=== PATIENT | female | born 1995 | race Two or more races ===

== ENCOUNTER 2018-08-16 15:13 | Outpatient (CLI) | payer OTHER | END 2018-08-16 15:14 | disposition critical access hospital (66) | LOC: EMS 15:13 | PROVIDERS: ATTEND Surgery | DX: O26.899 Other specified pregnancy related conditions, unspecified trimester (principal); R55 Syncope and collapse | CPT/HCPCS: A0425; A0429 ==

== ENCOUNTER 2018-08-16 15:33 | Emergency (ER) | payer OTHER ==
[2018-08-16] MEDS ORDERED: SODIUM CHLORIDE 0.9% 500 ML IV ONE (16:25)
--- NOTE | 2018-08-16 16:30 | ED Physician Documentation ---
PD HPI SYNCOPE - Stated complaint Stated Complaint: SYNCOPE - Chief complaint Chief Complaint: General - History obtained from History obtained from: Patient, Family, EMS - History of Present Illness Witnessed: Witnessed Timing - onset: Today Duration: Seconds Preceding symptoms: Vision changes, Light headed Associated symptoms: Vision changes. No: Seizure, Chest pain, Palpitations, Diaphoresis, Nausea / vomiting, Abdominal pain Contributing factors: Other (taking a hot shower) Injury occurred: Other (right posterior chest contusion) Similar symptoms before: Has not had sx before Recently seen: Clinic - Additional information Additional information: 22-year-old female who is a primipara has had a syncopal episode in the shower today. Her reports that she had been in the shower for about 15 minutes shower was quite hot at the time the incident happened. She reports that she felt warm and her vision faded and the next thing she knew she was on the ground. Her states that he was able to help her to the ground she did strike her back against something in the bathroom. She came to after about 15 seconds and she has no specific symptoms now. She indicates that they recently moved to the area with new orders [place] She is about 28 weeks. Review of Systems Constitutional: denies: Fever Eyes: denies: Decreased vision Ears: denies: Ear pain Nose: denies: Congestion Throat: denies: Sore throat Cardiac: denies: Chest pain / pressure, Palpitations Respiratory: denies: Dyspnea, Cough GI: denies: Abdominal Pain, Nausea, Vomiting, Constipation, Diarrhea : denies: Dysuria, Frequency Skin: denies: Rash Musculoskeletal: denies: Neck pain, Back pain, Extremity pain Neurologic: denies: Generalized weakness, Focal weakness, Numbness PD PAST MEDICAL HISTORY - Past Surgical History Past Surgical History: No - Present Medications Home Medications: Ambulatory Orders Medication Instructions Recorded Confirmed No Known Home Medications 08/16/18 08/16/18 - Allergies Allergies/Adverse Reactions: Allergies Allergy/AdvReac Type Severity Reaction Status Date / Time No Known Drug Allergies Allergy Verified 08/16/18 15:42 - Social History Does the pt smoke?: No Smoking Status: Never smoker Does the pt drink ETOH?: No Does the pt have substance abuse?: No PD ED PE NORMAL - Vitals Vital signs reviewed: Yes (tachy ) - General General: Alert and oriented X 3, No acute distress, Well developed/nourished - HEENT HEENT: Atraumatic, PERRL, EOMI, Ears normal, Moist mucous membranes, Pharynx benign, Dentition benign - Neck Neck: Supple, no meningeal sign, No bony TTP - Cardiac Cardiac: RRR, No murmur - Respiratory Respiratory: No respiratory distress, Clear bilaterally - Abdomen Abdomen: Soft, Non tender, Other (gravid to the xyphoid non-tender uterus) - Back Back: No CVA TTP, No spinal TTP - Derm Derm: Normal color, Warm and dry, No rash - Extremities Extremities: No deformity, No edema - Neuro Neuro: Alert and oriented X 3, 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, No motor deficit, No sensory deficit, Normal speech Eye Opening: Spontaneous Motor: Obeys Commands Verbal: Oriented GCS Score: 15 - Psych Psych: Normal mood, Normal affect Results - Vitals Vitals: Vital Signs - 24 hr 08/16/18 08/16/18 15:37 16:58 Temperature 36.9 C Heart Rate 106 H 92 Respiratory 18 18 Rate Blood Pressure 113/70 107/67 O2 Saturation 96 100 Oxygen O2 Source Room air - EKG (time done) 1645 Rate: Rate (enter#) (96) Rhythm: LAE Ischemia: Non specific changes Compare to prior EKG: Old EKG unavailable Computer interpretation: Agree with computer - Labs Labs: Laboratory Tests 08/16/18 08/16/18 08/16/18 16:40 16:40 16:40 WBC 13.5 H RBC 3.92 L Hgb 11.5 L Hct 34.3 L MCV 87.4 MCH 29.2 MCHC 33.5 RDW 13.4 Plt Count 232 MPV 8.4 Neut # (Auto) 10.7 H Lymph # (Auto) 1.8 [place] # (Auto) 0.9 Eos # (Auto) 0.0 Baso # (Auto) 0.0 Absolute Nucleated RBC 0.00 Nucleated RBC % 0.0 Sodium 135 Potassium 3.4 L Chloride 99 L Carbon Dioxide 24 Anion Gap 12.0 BUN < 5 L Creatinine 0.3 L Estimated GFR (MDRD) 281 Glucose 96 Calcium 9.4 Total Bilirubin 0.2 AST 19 ALT 11 Alkaline Phosphatase 136 H Troponin I < 0.04 Total Protein 6.6 L Albumin 3.2 Globulin 3.4 Albumin/Globulin Ratio 0.9 L Lipase 25 Urine Color Urine Clarity Urine pH Ur Specific [place] Urine Protein Urine Glucose (UA) Urine Ketones Urine Occult Blood Urine Nitrite Urine Bilirubin Urine Urobilinogen Ur Leukocyte Esterase Urine RBC Urine WBC Ur Squamous Epith Cells Amorphous Sediment Urine Bacteria Ur Microscopic Review Urine Culture Comments 08/16/18 16:45 WBC RBC Hgb Hct MCV MCH MCHC RDW Plt Count MPV Neut # (Auto) Lymph # (Auto) [place] # (Auto) Eos # (Auto) Baso # (Auto) Absolute Nucleated RBC Nucleated RBC % Sodium Potassium Chloride Carbon Dioxide Anion Gap BUN Creatinine Estimated GFR (MDRD) Glucose Calcium Total Bilirubin AST ALT Alkaline Phosphatase Troponin I Total Protein Albumin Globulin Albumin/Globulin Ratio Lipase Urine Color YELLOW Urine Clarity HAZY Urine pH 8.0 H Ur Specific [place] 1.020 Urine Protein TRACE Urine Glucose (UA) NEGATIVE Urine Ketones TRACE Urine Occult Blood NEGATIVE Urine Nitrite NEGATIVE Urine Bilirubin NEGATIVE Urine Urobilinogen 0.2 (NORMAL) Ur Leukocyte Esterase MODERATE H Urine RBC 0-5 Urine WBC 6-10 H Ur Squamous Epith Cells MANY Squamous H Amorphous Sediment Few Urine Bacteria Many H Ur Microscopic Review INDICATED Urine Culture Comments NOT INDICATED Procedures - IVC sono (time) 1620 Bedside IVC sono: IVC measures (cm) (1.33), Dehydration (mild est <500ml deficit) PD MEDICAL DECISION MAKING - ED course Complexity details: reviewed results, re-evaluated patient, considered differential, d/w patient, d/w family ED course: 22-year-old primipara at 28 weeks has had a syncopal episode in the shower presumed secondary to shifting blood volume and she is now recovered. Here in the emerge department she is found to be minimally dehydrated the fetus appears well she is administered intravenous saline and a routine syncopal workup is undertaken. Departure - Departure Disposition: 01 Home, Self Care Clinical Impression: Syncope and collapse, Dehydration Instructions: ED Syncope Vasovagal, ED Dehydration Follow-Up: ARIE Smith [Provider Group]
[2018-08-16 16:48] LABS: EOSINOPHILS % (AUTO) 0.4 %; HGB - HEMOGLOBIN 11.5 g/dL (12.0-16.0); LYMPHOCYTES # (AUTO) 1.8 10^3/uL (1.5-3.5); LYMPHOCYTES % (AUTO) 13.5 %; MEAN CORPUSCULAR HEMOGLOBIN 29.2 pg (27.0-31.0); MEAN CORPUSCULAR HGB CONC 33.5 g/dL (32.0-36.0); MEAN CORPUSCULAR VOLUME 87.4 fL (81.0-99.0); MEAN PLATELET VOLUME 8.4 fL (7.9-10.8); MONOCYTES # (AUTO) 0.9 10^3/uL (0.0-1.0); MONOCYTES % (AUTO) 6.6 %; NEUTROPHILS # (AUTO) 10.7 10^3/uL (1.5-6.6); NEUTROPHILS % (AUTO) 79.5 %; PLT - PLATELET COUNT 232 10^3/uL (130-450); RED BLOOD COUNT 3.92 10^6/uL (4.20-5.40); RED CELL DISTRIBUTION WIDTH 13.4 % (12.0-15.0); WHITE BLOOD COUNT 13.5 x10^3/uL (4.8-10.8)
[2018-08-16 17:05] LABS: ALBUMIN 3.2 g/dL (3.2-5.5); ALBUMIN/GLOBULIN RATIO 0.9 (1.0-2.2); ALKALINE PHOSPHATASE 136 IU/L (42-121); ALT ALANINE AMINOTRANSFERASE 11 IU/L (10-60); AST ASPARTATE AMINOTRANSFERASE 19 IU/L (10-42); BILIRUBIN,TOTAL 0.2 mg/dL (0.2-1.0); BUN - BLOOD UREA NITROGEN < 5 mg/dL (6-20); CALCIUM 9.4 mg/dL (8.5-10.3); CARBON DIOXIDE - CO2 24 mmol/L (21-32); CHLORIDE 99 mmol/L (101-111); CREATININE 0.3 mg/dL (0.4-1.0); GFR - MDRD 281 (>89); GLUCOSE 96 mg/dL (70-100); LIPASE 25 U/L (22-51); SODIUM 135 mmol/L (135-145); TOTAL PROTEIN 6.6 g/dL (6.7-8.2)
[2018-08-16 17:13] LABS: BILIRUBIN,URINE NEGATIVE (NEGATIVE); GLUCOSE, URINE (UA) NEGATIVE (NEGATIVE); KETONES,URINE (UA) TRACE mg/dL (NEGATIVE); LEUKOCYTE ESTERASE, URINE MODERATE (NEGATIVE); NITRITE,URINE NEGATIVE (NEGATIVE); OCCULT BLOOD,URINE NEGATIVE (NEGATIVE); PROTEIN,URINE TRACE mg/dL (NEGATIVE); UROBILINOGEN,URINE 0.2 (NORMAL) E.U./dL (NORMAL)
[2018-08-16 17:18] LABS: CLARITY,URINE HAZY (CLEAR)
[2018-08-16 17:27] LABS: AMORPHOUS SEDIMENT,UR Few /LPF; BACTERIA,URINE Many /HPF (None Seen); RBC,URINE 0-5 /HPF (0-5); SQUAMOUS EPITHELIAL CELL,UR MANY Squamous (<= Few)
[2018-08-16 17:39] VITALS: BP 93/55
== END 2018-08-16 17:40 | disposition home or self-care (01) ==
LOC: ED 15:33
DX: O99.283 Endocrine, nutritional and metabolic diseases complicating pregnancy, third trimester (principal); E86.0 Dehydration; O99.89 Other specified diseases and conditions complicating pregnancy, childbirth and the puerperium; R55 Syncope and collapse; Z3A.27 27 weeks gestation of pregnancy
CPT/HCPCS: 36415; 59025; 80053; 81001; 81003; 83690; 84484; 85025; 87086; 93005; 96360; 99283; 99284

== ENCOUNTER 2018-08-16 18:03 | Outpatient (CLI) | payer OTHER ==
[2018-08-16 19:34] VITALS: BP 109/69
== END 2018-08-16 18:55 | disposition home or self-care (01) ==
LOC: WFO 18:03 → FBP 18:09 → WFO 18:55
PROVIDERS: ATTEND Obstetrics & Gynecology
DX: O99.89 Other specified diseases and conditions complicating pregnancy, childbirth and the puerperium (principal); R55 Syncope and collapse; Z3A.27 27 weeks gestation of pregnancy
CPT/HCPCS: 59025

== ENCOUNTER 2018-10-17 00:44 | Outpatient (CLI) | payer OTHER ==
[2018-10-17 02:23] LABS: RUPTURE OF MEMBRANES PLUS NEGATIVE (NEGATIVE)
[2018-10-17 03:24] VITALS: BP 128/71
--- NOTE | 2018-11-04 11:26 | PROVIDER PROGRESS NOTE ---
- HPI Chief Complaint: Labor Check Current : Current DOS: 10/17/18 EDU 10/26/18 Gestation 38 Weeks and 5 Days 1 Para 0 Vital Signs Temperature 98 F 10/17/18 01:03 Heart Rate 90 10/17/18 01:03 Respiratory Rate 18 10/17/18 01:03 Blood Pressure 128/71 10/17/18 01:03 O2 Saturation 100 10/17/18 01:03 Temperature 98 F 10/17/18 01:03 Heart Rate 90 10/17/18 01:03 Respiratory Rate 18 10/17/18 01:03 Blood Pressure 128/71 10/17/18 01:03 O2 Saturation 100 10/17/18 01:03 This patient was seen on 10/17/18 in triage She was assessed for rupture of membranes, which was ruled out Serial SVE indicated no cervical change Cat I tracing Discharged to home - Procedures OB Procedure Performed: NST NST Procedure: EFM: mod harika 15x15 accels, no decels--> Cat I tracing TOCO: Q3 min Date: 10/17/18 Procedure Details: DOS 10/17/18 DX: Uterine contractions at 38w5d ega Cat I tracing No change in serial SVE Discharged to home with precautions Latent labor
== END 2018-10-17 03:05 | disposition home or self-care (01) ==
LOC: WFO 00:44 → FBP 00:45 → WFO 03:05
PROVIDERS: ATTEND Obstetrics & Gynecology
DX: Z34.01 Encounter for supervision of normal first pregnancy, first trimester (principal)
CPT/HCPCS: 84112; 99213

== ENCOUNTER 2018-11-22 19:15 | Emergency (ER) | payer OTHER ==
--- NOTE | 2018-11-22 21:19 | ED Physician Documentation ---
PD HPI ABD PAIN - Stated complaint Stated Complaint: S/P C SECTION, FEVER - Chief complaint Chief Complaint: Abd Pain - History obtained from History obtained from: Patient, Family () - History of Present Illness Timing - onset: How many weeks ago (1) Timing - details: Gradual onset Quality: Dull Location: Suprapubic Recently seen: Clinic (One week ago.) - Additional information Additional information: The patient is a 23-year-old female who is 3 weeks status post and presents today because of concern of wound infection. She has noticed a burning sensation at the wound site, and has noticed some drainage from the central portion of the wound. She has felt warm and thinks she has had fever. She reports mild nausea, without vomiting. She reports dysuria for the past week. 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 She denies headache, sore throat, cough, or back pain. Review of Systems Constitutional: reports: Fever Eyes: denies: Irritation Nose: denies: Congestion Throat: denies: Sore throat Cardiac: denies: Chest pain / pressure Respiratory: denies: Dyspnea, Cough GI: reports: Abdominal Pain (lower abd. at incision site.), Nausea, Diarrhea (One episode of diarrhea four days ago,). denies: Vomiting : reports: Dysuria, Other (3 weeks status post .) Skin: denies: Rash Musculoskeletal: denies: Back pain Neurologic: denies: Headache PD PAST MEDICAL HISTORY - Past Medical History Past Medical History: No Cardiovascular: None Respiratory: None Neuro: None Endocrine/Autoimmune: None GI: None GOLF [employer]ER: None : None HEENT: None Psych: None Musculoskeletal: None Derm: None - Past Surgical History Past Surgical History: No /GOLF [employer]KER: section - Present Medications Home Medications: Ambulatory Orders Medication Instructions Recorded Confirmed cephALEXin [Cephalexin] 500 mg PO TID #20 tablet 11/22/18 oxyCODONE [Roxicodone] 5 mg PO PRN PRN 11/22/18 11/22/18 - Allergies Allergies/Adverse Reactions: Allergies Allergy/AdvReac Type Severity Reaction Status Date / Time No Known Drug Allergies Allergy Verified 11/22/18 19:46 - Social History Does the pt smoke?: No Smoking Status: Never smoker Does the pt drink ETOH?: No Does the pt have substance abuse?: No - Immunizations Immunizations are current?: Yes - POLST Patient has POLST: No PD ED PE NORMAL - Vitals Vital signs reviewed: Yes (normal) - General General: Alert and oriented X 3, Well developed/nourished - HEENT HEENT: Atraumatic, Pharynx benign - Neck Neck: No adenopathy - Cardiac Cardiac: RRR - Respiratory Respiratory: No respiratory distress, Clear bilaterally - Abdomen Abdomen: Normal bowel sounds, Soft, Non tender, Other (Lower abdominal surgical wound is intact without evidence of drainage and no surrounding erythema. There is a 1 cm portion in the central region of the wound that is slightly open. There is no tenderness to palpation.) - Back Back: No CVA TTP - Derm Derm: No rash - Extremities Extremities: No edema, No calf tenderness / cord - Neuro Neuro: Alert and oriented X 3, No motor deficit, Normal speech Results - Vitals Vitals: Vital Signs - 24 hr 11/22/18 11/22/18 11/22/18 19:40 19:45 22:17 Temperature 37.1 C 37.1 C 36.7 C Heart Rate 100 87 93 Respiratory 16 18 18 Rate Blood Pressure 123/67 130/87 H 123/72 O2 Saturation 100 100 96 Oxygen O2 Source Room air - Labs Labs: Laboratory Tests 11/22/18 11/22/18 21:15 21:15 Urine Color YELLOW Urine Clarity CLEAR Urine pH 5.5 Ur Specific [place] 1.020 1.020 Urine Protein NEGATIVE Urine Glucose (UA) NEGATIVE Urine Ketones NEGATIVE Urine Occult Blood NEGATIVE Urine Nitrite NEGATIVE Urine Bilirubin NEGATIVE Urine Urobilinogen 0.2 (NORMAL) Ur Leukocyte Esterase NEGATIVE Ur Microscopic Review NOT INDICATED Urine Culture Comments NOT INDICATED Urine HCG, Qual NEGATIVE PD MEDICAL DECISION MAKING - ED course Complexity details: reviewed results, re-evaluated patient, considered differential, d/w patient, d/w family ED course: The patient's presentation is concerning for the possibility of postoperative wound infection 3 weeks status post . Although there is no significant wound erythema or tenderness, the history of fever and malodorous drainage is concerning. Urinalysis is negative, and she does not have any respiratory symptoms. Treatment in the emergency department included administration of cephalexin 500 mg orally. She is being discharged with prescription for cephalexin. I discussed with her and her antibiotic treatment and outpatient follow- up, as well as potentially worrisome signs or symptoms that should prompt reevaluation in the emergency department. Departure - Departure Disposition: 01 Home, Self Care Clinical Impression: Postoperative wound infection, S/P Condition: Stable Instructions: ED Wound Infec After Surgery Follow-Up: ARIE Smith [Provider Group] Prescriptions: cephALEXin [Cephalexin] 500 mg PO TID #20 tablet Comments: Clean the surgical wound twice daily with warm soapy water. Take cephalexin 3 times daily as prescribed. Follow-up with your non destructive testing supervisor within 1 to 2 weeks. Call to schedule appointment. Return to the emergency department if you develop increasing abdominal pain increasing drainage from the wound site, or otherwise worsening symptoms. Discharge Date/Time: 11/22/18 22:18
[2018-11-22 21:23] LABS: BILIRUBIN,URINE NEGATIVE (NEGATIVE); GLUCOSE, URINE (UA) NEGATIVE (NEGATIVE); KETONES,URINE (UA) NEGATIVE (NEGATIVE); LEUKOCYTE ESTERASE, URINE NEGATIVE (NEGATIVE); NITRITE,URINE NEGATIVE (NEGATIVE); OCCULT BLOOD,URINE NEGATIVE (NEGATIVE); PH,URINE 5.5 PH (5.0-7.5); PROTEIN,URINE NEGATIVE (NEGATIVE); UROBILINOGEN,URINE 0.2 (NORMAL) E.U./dL (NORMAL)
[2018-11-22 21:29] LABS: CLARITY,URINE CLEAR (CLEAR)
[2018-11-22 21:31] LABS: HCG UR QUAL NEGATIVE
[2018-11-22] MEDS ORDERED: cephALEXin 250 MG CAPSULE PO STA (21:58)
[2018-11-22 22:18] VITALS: BP 123/72
== END 2018-11-22 22:18 | disposition home or self-care (01) ==
LOC: ED 19:15
DX: O86.00 Infection of obstetric surgical wound, unspecified (principal)
CPT/HCPCS: 81003; 81025; 99283; A9270; 81001; 87086